=== PATIENT | male | born 1980 | race Caucasian/White ===

== ENCOUNTER → 2017-05-10 | Outpatient (CLI) | payer OTHER ==
--- NOTE | 2017-05-10 11:51 | RAD ---
Examination: MRI of the left knee without contrast HISTORY: History of left knee pain after fall COMPARISON: None available TECHNIQUE: Vertigo, disequilibrium, imaging of the left knee were performed without contrast FINDINGS: The anterior cruciate ligament, posterior cruciate ligament are intact. The medial meniscus is intact. There is complete peripheral vertical longitudinal tear of the posterior horn and body of the lateral meniscus identified with the majority of the posterior horn flipped into the intercondylar notch and the body of the lateral meniscus flipped directly posterior to the truncated anterior horn. There is double delta sign and double PCL sign identified. The extensor mechanism is intact. The medial collateral ligament is intact and the lateral collateral ligamentous complex including the fibular collateral ligament, biceps femoris tendon, popliteus tendon appear intact The medial retinaculum, lateral retinaculum appear intact. Moderate knee joint effusion. There is minimal superficial fraying of cartilage identified in the weightbearing portion of the lateral compartment and in the patellofemoral compartment. IMPRESSION: 1. Large bucket-handle tear of the lateral meniscus with flipped meniscus as described above. 2. Moderate knee joint effusion. 3. Mild superficial fraying of cartilage identified in the lateral, patellofemoral compartments. Electronically signed by: Samy Bañuelos MD (05/10/2017 11:48 AM) [id number]
== END | disposition home or self-care (01) ==
LOC: MRI 15:57
PROVIDERS: ATTEND Nurse Practitioner Acute Care
DX: M25.462 Effusion, left knee (principal); S83.252A Bucket-handle tear of lateral meniscus, current injury, left knee, initial encounter; X58.XXXA Exposure to other specified factors, initial encounter; Y93.89 Activity, other specified; Y92.89 Other specified places as the place of occurrence of the external cause; Y99.8 Other external cause status
CPT/HCPCS: 73721